=== PATIENT | male | born 1995 | race Caucasian/White ===

== ENCOUNTER 2016-11-01 21:32 | Emergency (ER) | payer SELFPAY ==
[~2016-11-01 21:32] MED LIST: ALPR0.254 PO; BACTDS PO; BEN50 PO; CEPH-443 PO; LORA1TAB PO; QUET100T PO; QUET25TA26 PO
== END 2016-11-01 22:02 | disposition left against medical advice (07) ==
LOC: E/R 21:32
DX: Z53.21 Procedure and treatment not carried out due to patient leaving prior to being seen by health care provider (principal)